=== PATIENT | female | born 1950 | race Caucasian/White ===

== ENCOUNTER → 2017-03-31 | Outpatient (CLI) | payer MEDICAID ==
--- NOTE | 2017-03-31 20:17 | CR ---
EXAM DATE: 03/31/17 PATIENT'S AGE: 66 Patient: RAUL SCHMIDT Facility: [place], [place] Site . Site : 1950 Study: XRay Knee Bilateral [id number]/12/2017 9:31:15 AM Ordering Physician: Candice Peraza Final Report: HISTORY: Knee pain and swelling. Technique: One view of both knees obtained weightbearing. Findings: On the left, there is moderate narrowing of medial joint space compartment. Mild osteophyte formation about the medial joint space compartment. No acute fracture. - On the right, there is minimal narrowing of the medial and lateral joint space compartments with mild degenerative arthrosis changes. No fracture. Impression: 1. On the left, there is moderate medial joint space compartment narrowing with degenerative arthrosis changes. 2. On the right, there is minimal narrowing of the medial and lateral joint space compartments with degenerative arthrosis changes. 3. No acute fracture. Dictated by Will Celis MD @ Mar 31 2017 10:20AM (Electronic Signature) Report Signed by Proxy. NIDHI
== END ==
LOC: MW.CHORTHO 08:17
PROVIDERS: ATTEND Physician Assistant
DX: M25.561 Pain in right knee (principal); M17.11 Unilateral primary osteoarthritis, right knee; M17.12 Unilateral primary osteoarthritis, left knee
CPT/HCPCS: 73560-26-RT; 73560-RT